=== PATIENT | male | born 1980 | race American Indian/Alaskan Native ===

== ENCOUNTER 2017-09-18 23:04 | Emergency (ER) | payer MEDICAID ==
[2017-09-18 23:14] VITALS: BP 113/70; PULSE 64; RESP 20; TEMP 98; O2SAT 100
--- NOTE | 2017-09-18 23:20 | C.PDOC ---
History Of Present Illness Patient presents to the ER with a complaint of left shoulder pain worsing over the past months but worse these past 3 days. Patient notes he has pain with hyperextension of the shoulder. Denies trauma, heavy lifting, weakness, or numbness. Time Seen by Provider: 09/18/17 23:20 Chief Complaint (Nursing): Back Pain History Per: Patient History/Exam Limitations: no limitations Onset/Duration Of Symptoms: Days Current Symptoms Are (Timing): Still Present Quality Of Discomfort: Unable To Describe Severity: Mild Pain Scale Rating Of: 2 Previous Symptoms: None Associated Symptoms: None Exacerbating Factor(s): Other (Hyper extension of the shoulder) Recent travel outside of the [place]: No Past Medical History Reviewed: Historical Data, Nursing Documentation, Vital Signs Vital Signs: Last Vital Signs Temp 98 F 09/18/17 23:07 Pulse 64 09/18/17 23:07 Resp 20 09/18/17 23:07 BP 113/70 09/18/17 23:07 Pulse Ox 100 09/18/17 23:58 Surgical History: No Surg Hx Family History: States: No Known Family Hx - Social History Hx Alcohol Use: No Hx Substance Use: No - Immunization History Hx Tetanus Toxoid Vaccination: No Hx Influenza Vaccination: No Hx Pneumococcal Vaccination: No Review Of Systems Cardiovascular: Negative for: Chest Pain, Palpitations Respiratory: Negative for: Cough, Shortness of Breath Musculoskeletal: Positive for: Shoulder Pain Neurological: Negative for: Weakness, Numbness Physical Exam - Physical Exam Appears: Non-toxic Skin: Warm, Dry Head: Normacephalic Chest: Symmetrical, No Tenderness Cardiovascular: Rhythm Regular Respiratory: No Rales, No Rhonchi, No Wheezing Gastrointestinal/Abdominal: Soft, No Tenderness Extremity: Tenderness (Left lateral shoulder, no crepitus), Capillary Refill (< 2 seconds), No Deformity, Other (Good strength of arms equal and bilaterally) Pulses: Left Radial: Normal, Right Radial: Normal Neurological/Psych: Oriented x3 ED Course And Treatment O2 Sat by Pulse Oximetry: 100 (Room air) Pulse Ox Interpretation: Normal Disposition Counseled Patient/Family Regarding: Studies Performed, Diagnosis, Need For Followup - Disposition Referrals: Jesús Vick MD [Staff Provider] - Disposition: HOME/ ROUTINE Disposition Time: 23:20 Condition: FAIR Instructions: Shoulder Tendinopathy (DC), Shoulder Sprain (DC) Forms: SOAMAI (Norwegian) - Clinical Impression Clinical Impression: Shoulder pain, left - Scribe Statement The provider has reviewed the documentation as recorded by the Scribzuri Brambila All medical record entries made by the Tuanibe were at my direction and personally dictated by me. I have reviewed the chart and agree that the record accurately reflects my personal performance of the history, physical exam, medical decision making, and the department course for this patient. I have also personally directed, reviewed, and agree with the discharge instructions and disposition.
== END 2017-09-18 23:56 | disposition home or self-care (01) ==
LOC: C.ER 23:04
DX: M25.512 Pain in left shoulder (principal)